=== PATIENT | female | born 1995 | race Caucasian/White ===

== ENCOUNTER 2020-09-08 14:22 | Emergency (ER) | payer MEDICAID ==
[~2020-09-08] VITALS: Ht 170.2 cm; Wt 95.5 kg
[~2020-09-08 14:22] MED LIST: NO HOME MEDS
[2020-09-08 14:34] VITALS: BP 114/78
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
[2020-09-08] MEDS ORDERED: HYDR28CR14 TOP (16:29)
== END 2020-09-08 17:21 | disposition home or self-care (01) ==
LOC: ER 14:23
DX: M25.562 Pain in left knee (principal); L23.7 Allergic contact dermatitis due to plants, except food; W18.39XA Other fall on same level, initial encounter; Y93.9 Activity, unspecified; Y92.89 Other specified places as the place of occurrence of the external cause; Y99.8 Other external cause status
CPT/HCPCS: 29505; 73564; 99284

== ENCOUNTER 2020-12-08 10:38 | Emergency (ER) | payer MEDICAID ==
[~2020-12-08] VITALS: Ht 170.2 cm; Wt 94.0 kg
[~2020-12-08 10:38] MED LIST changes: +HYDR28CR14 TOP
[2020-12-08 10:56] VITALS: BP 128/91
[2020-12-08 12:12] LABS: CLARITY,URINE CLEAR (Clear); COLOR,URINE YELLOW (Yellow); GLUCOSE, URINE NEGATIVE (Neg); KETONES,URINE NEGATIVE (Neg); LEUKOCYTE ESTERASE ,URINE NEGATIVE (Neg); NITRITES, URINE NEGATIVE (Neg); OCCULT BLOOD,URINE SMALL (Neg); PROTEIN,URINE NEGATIVE (Neg)
[2020-12-08 12:13] LABS: URINE HCG NEGATIVE (NEG)
[2020-12-08 12:14] LABS: UA COLLECTION TYPE CLN CATCH MIDSTREAM
[2020-12-08 12:19] LABS: SQUAMOUS EPITHELIAL CELL,UR FEW /LPF (FEW)
[2020-12-08 12:20] LABS: RBC,URINE 0-2 /HPF (0-2); WBC,URINE NONE SEEN /HPF (0-4)
[2020-12-08 12:21] LABS: BACTERIA,URINE FEW /HPF (Neg)
--- NOTE | 2020-12-08 15:13 | NUR ---
Attempted to call patient back to a room, patient not in lobby for the third time. Called patient at listed number at which call went straight to voicemail. Dr. hercules aware.
== END 2020-12-08 15:16 | disposition left against medical advice (07) ==
LOC: ER 10:39
DX: R10.9 Unspecified abdominal pain (principal); R11.0 Nausea; Z53.21 Procedure and treatment not carried out due to patient leaving prior to being seen by health care provider
CPT/HCPCS: 81001; 81025

== ENCOUNTER 2022-10-26 08:31 | Emergency (ER) | payer MEDICAID ==
[~2022-10-26] VITALS: Ht 170.2 cm; Wt 103.0 kg
[2022-10-26 08:33] VITALS: BP 124/86
[2022-10-26] MEDS ORDERED: PENI500T2 PO (09:58)
[2022-10-26] MEDS ORDERED: acetaminophen 325mg tablet PO ONE (10:00)
== END 2022-10-26 10:07 | disposition home or self-care (01) ==
LOC: ER 08:31
DX: O26.892 Other specified pregnancy related conditions, second trimester (principal); K04.7 Periapical abscess without sinus; O16.2 Unspecified maternal hypertension, second trimester; Z79.2 Long term (current) use of antibiotics; Z79.899 Other long term (current) drug therapy; Z3A.25 25 weeks gestation of pregnancy
CPT/HCPCS: 99283